=== PATIENT | male | born 1980 | race African-American/Black ===

== ENCOUNTER 2018-04-21 14:07 | Emergency (ER) | payer MEDICAID ==
[2018-04-21] MEDS ORDERED: Albuterol/Ipratropium 3.0-0.5 MG/3 ML Neb Soln NEB ONE (14:41)
--- NOTE | 2018-04-21 14:42 | EDM.PDOC ---
<Brianna Garcia - Last Filed: 04/21/18 15:20> ED HPI GENERAL MEDICAL PROBLEM - General Chief Complaint: Fever Stated Complaint: FEVER Time Seen by Provider: 04/21/18 14:29 Source of Information: Reports: Patient History Limitations: Reports: No Limitations - History of Present Illness INITIAL COMMENTS - FREE TEXT/NARRATIVE: 37-year-old male presents to emergency room with chief complaints of nasal congestion, runny nose and cough for the past 3 days. He reports yesterday that he developed a fever. He has a history of asthma. He denies any shortness of breath or chest pain. He is not taking any medication for his symptoms. Reports that he is just increase his fruit and vegetables. He reports that he has been otherwise healthy. He reports he has not been around any sick contacts. He does not have a PCP. Onset Date: 04/20/18 Onset Time: 12:00 Duration: Getting Worse Location: Reports: Chest Quality: Reports: Ache Severity: Mild Improves with: Reports: None Worsens with: Reports: None Associated Symptoms: Reports: Cough, Fever/Chills. Denies: Confusion, Chest Pain, Nausea/Vomiting, Rash Generalized Pain Score (Numeric/FACES): 7 - Related Data Allergies Allergy/AdvReac Type Severity Reaction Status Date / Time No Known Allergies Allergy Verified 04/21/18 14:20 Home Meds: Home Meds Albuterol Sulfate [Albuterol Sulfate Hfa] 8.5 gm IH TID PRN #1 [email or web address] [Rx] Fluticasone Propionate [Flonase] 16 gm .XX DAILY #1 bottle 04/21/18 [Rx] Past Medical History - Past Surgical History HEENT Surgical History: Reports: Oral Surgery Other HEENT Surgeries/Procedures: sinus problems Social & Family History - Tobacco Use Smoking Status *Q: Current Every Day Smoker Years of Tobacco use: 10 Packs/Tins Daily: 0.5 - Caffeine Use Caffeine Use: Reports: Soda - Recreational Drug Use Recreational Drug Use: No ED ROS ENT - Review of Systems Review Of Systems: See Below Constitutional: Reports: Fever, Other (Body aches). Denies: Chills HEENT: Reports: Rhinitis, Sinus Problem Respiratory: Reports: Wheezing, Cough. Denies: Shortness of Breath Cardiovascular: Reports: No Symptoms Endocrine: Reports: No Symptoms GI/Abdominal: Reports: No Symptoms : Reports: No Symptoms Musculoskeletal: Reports: No Symptoms Skin: Reports: No Symptoms Neurological: Reports: No Symptoms. Denies: Headache Psychiatric: Reports: No Symptoms Hematologic/Lymphatic: Reports: No Symptoms Immunologic: Reports: No Symptoms ED EXAM, ENT - Physical Exam Exam: See Below Exam Limited By: No Limitations General Appearance: Alert, WD/WN, No Apparent Distress Ears: Normal External Exam, Normal Canal, Hearing Grossly Normal, Normal TMs Nose: Nasal Discharge, Nasal Swelling (Right turbinate appears swollen with watery discharge there is no septal deviation noted) Course - Vital Signs Last Recorded V/S: Last Vital Signs Temp 98.1 F 04/21/18 14:21 Pulse 82 04/21/18 14:21 Resp 12 04/21/18 14:21 BP 124/86 04/21/18 14:21 Pulse Ox 92 L 04/21/18 15:16 - Orders/Labs/Meds Orders: Active Orders 24 hr Category Date Time Status RT Aerosol Therapy [RC] ASDIRECTED Care 04/21/18 14:41 Active CXR [Chest 2V] [CR] Stat Exams 04/21/18 14:40 Taken Meds: Medications Discontinued Medications Generic Name Dose Route Start Last Admin Trade Name Freq PRN Reason Stop Dose Admin Albuterol/Ipratropium 3 ml 04/21/18 14:41 04/21/18 15:13 Duoneb 3.0-0.5 Mg/3 Ml NEB 04/21/18 14:42 3 ml ONETIME ONE Administration - Re-Assessments/Exams Free Text/Narrative Re-Assessment/Exam: 04/21/18 15:20 His influenza is negative. His preliminary x-ray reveals no acute findings. If there is a change after radiologist reads I will contact patient. His airway is clear after nebulizer treatment. He is diagnosis with sinusitis. I will discharge home with Flonase. I don't feel he needs antibiotics at this time. I will discharge home with Albuterol inhaler. Instructed to follow up with PCP. I did give him a list of provider in the area. I instructed him to return to the emergency room for any new or acutely worsening symptoms. 04/21/18 15:25 Departure - Departure Time of Disposition: 15:22 Disposition: Home, Self-Care 01 Condition: Good Clinical Impression: Sinusitis Qualifiers: Sinusitis location: maxillary Chronicity: acute Recurrence: non-recurrent Qualified Code(s): J01.00 - Acute maxillary sinusitis, unspecified - Discharge Information *PRESCRIPTION DRUG MONITORING PROGRAM REVIEWED*: Not Applicable *COPY OF PRESCRIPTION DRUG MONITORING REPORT IN PATIENT JERMAINE: Not Applicable Prescriptions: Albuterol Sulfate [Albuterol Sulfate Hfa] 8.5 gm IH TID PRN #1 [email or web address] PRN Reason: Cough Fluticasone Propionate [Flonase] 16 gm .XX DAILY #1 bottle Instructions: Sinusitis, Adult Referrals: PCP,None [Primary Care Provider] - Forms: ED Department Discharge <Trell Perdue - Last Filed: 04/21/18 16:19> Course - Re-Assessments/Exams Free Text/Narrative Re-Assessment/Exam: 04/21/18 16:18 Initial history and exam was done by NICOLAS Moses. I have also evaluated patient. I agree with her history and exam as documented as well as treatment plan.
--- NOTE | 2018-04-22 08:13 | CR ---
Chest: Two views of the chest were obtained. Comparison: No prior chest x-ray. Heart size and mediastinum are normal. Mild perihilar interstitial change is seen. Lungs otherwise are clear but hyperinflated. Bony structures are unremarkable. Impression: 1. Increased perihilar interstitial change most likely representing bronchitis. 2. Lungs are slightly hyperinflated on the lateral view which may relate to the bronchitis if this correlates with patient's clinical symptoms. Differential also includes emphysematous change if patient is a smoker. Diagnostic code #3
== END 2018-04-21 16:05 | disposition home or self-care (01) ==
LOC: JD.ED 14:07
DX: J01.00 Acute maxillary sinusitis, unspecified (principal); F17.210 Nicotine dependence, cigarettes, uncomplicated
CPT/HCPCS: 71046; 71046-26; 87804; 94640; 99283; 99284-25; J7620-GY